=== PATIENT | male | born 1970 | race Caucasian/White ===

== ENCOUNTER 2021-08-29 21:06 | Inpatient (IN) | payer OTHER ==
[~2021-08-29] VITALS: Ht 175.3 cm; Wt 97.7 kg
[2021-08-29 21:39] VITALS: BP 137/97
[2021-08-29] MEDS ORDERED: ONDANSETRON PF 4 MG/2 ML VIAL. IVP PRN (22:15)
[2021-08-29] MEDS ORDERED: MORPHINE SULFATE 2 MG/ML INJ. IVP PRN (22:15)
[2021-08-29] MEDS: PANTOPRAZOLE IV PUSH 40 MG VIAL. IVP SCH (22:27)
[2021-08-29] MEDS: IV NORMAL SALINE 1000ML BAG 1,000 ML IV SCH (22:28)
[2021-08-30 02:41] VITALS: BP_SYST 116; BP_SYST 137; BP_DIAS 77; BP_DIAS 97
[2021-08-30 07:00] VITALS: BP 110/70
[2021-08-30] MEDS: IV NORMAL SALINE 1000ML BAG 1,000 ML IV SCH (08:09)
[2021-08-30] MEDS: PANTOPRAZOLE IV PUSH 40 MG VIAL. IVP SCH (08:10)
--- NOTE | 2021-08-30 08:11 | PDOC1 ---
History and Physical Date of Admission Date of Admission DATE: 08/30/21 TIME: 08:04 Identification/Chief Complaint Chief Complaint Impacted food bolus Source Source: Patient History of Present Illness History of Present Illness Patient is a 51-year-old male who presents as a transfer from [facility] for impacted food bolus since last night. He was eating a Chinese dish of pork wrapped in lettuce last night, when he felt food stuck in his throat. He vomited once without improvement. He had a history of similar symptoms several years ago treated with esophagus dilated. Patient unable to disimpact food bolus in [facility] ER, so he was sent as a transfer with GI consult. Upon my evaluation this morning he still having some emesis with small food particles. Still feels symptoms of food stuck in his throat. Past Medical History Pulmonary: Asthma Past Surgical History Past Surgical History Esophageal dilation Family History Family History: Adopted, Other Social History Smoke: No ALCOHOL: occassional Drugs: None Current Medications Current Medications Current Medications Ondansetron HCl (Zofran) 4 mg PRN Q6HRS PRN IVP NAUSEA/VOMITING 1ST CHOICE Last administered on 08/29/21at 22:28; Start 08/29/21 at 22:15 Morphine Sulfate (Morphine Sulfate) 2 mg PRN Q2HR PRN IVP SEVERE PAIN 7-10; Start 08/29/21 at 22:15 Pantoprazole Sodium (PROTONIX VIAL for IV PUSH) 40 mg DAILYAC IVP Last admini stered on 08/29/21at 22:27; Start 08/29/21 at 22:30 Sodium Chloride 1,000 ml @ 100 mls/hr Q10H IV Last administered on 08/29/21at 22:28; Start 08/29/21 at 22:30 Allergies Allergies: Coded Allergies: No Known Drug Allergies (Unverified , 08/29/21) ROS Review of System GENERAL: No history of weight change, weakness or fevers. SKIN: No bruising, hair changes or rashes. EYES: No blurred, double or loss of vision. NOSE AND THROAT: No history of nosebleeds, hoarseness or sore throat. HEART: Denies chest pain, denies palpitations. LUNGS: Denies cough, hemoptysis, wheezing or shortness of breath. GASTROINTESTINAL: Symptoms of impacted food bolus, nausea, vomiting. Denies abdominal pain. GENITOURINARY: Denies dysuria, frequency, urgency, hematuria. NEUROLOGIC: Denies history of numbness, tingling, tremor or weakness. PSYCHIATRIC: Denies anxiety, denies depression. ENDOCRINE: No history of heat or cold intolerance, polyuria or polydipsia. EXTREMITIES: Denies muscle weakness, joint pain, pain on walking or stiffness. Physical Exam Physical Exam General: Alert, Oriented X3, Cooperative, No acute distress HEENT: PERRLA, EOMI Lungs: Clear to auscultation, Normal air movement Heart: RRR, no murmurs Cardiovascular: S1, S2 Abdomen: Normal bowel sounds, Soft, No tenderness Extremities: No clubbing, No cyanosis Skin: No rashes, No significant lesion Neuro: Normal speech, Normal tone, Sensation intact Psych/Mental Status: Mental status NL, Mood NL Vitals Vitals Vital Signs Date Time Temp Pulse Resp B/P (MAP) Pulse Ox O2 Delivery O2 Flow Rate FiO2 08/30/21 07:00 98.0 63 20 110/70 (83) 96 Room Air 98.0 Labs Labs Laboratory Tests Test 08/29/21 22:55 SARS-CoV-2 Antigen (Rapid) Negative (NEGATIVE) Laboratory Tests Test 08/29/21 22:55 SARS-CoV-2 Antigen (Rapid) Negative (NEGATIVE) VTE Prophylaxis Ordered VTE Prophylaxis Devices: Yes VTE Pharmacological Prophylaxi: No Assessment/Plan Assessment/Plan Impacted food bolus Plan: Place consult to GI Zofran as needed Barring any GI plan or work-up, patient may be able to discharge home today Justifications for Admission Other Justification MARLY LOYA MD Aug 30, 2021 08:11
[2021-08-30 08:25] LABS: PROTHROMBIN TIME PATIENT 13.3 SEC (11.7-14.0)
--- NOTE | 2021-08-30 09:31 | PDOC2 ---
GI CONSULT Date of Service: DATE: 08/30/21 TIME: 09:31 Reason For Consult: food bolus HPI: HPI: 51 y/o male who reports a piece of beef lettuce wrap stuck in mid-lower chest since lunchtime yesterday. H/o intermittent dysphagia w/ solid foods - occurs 1-2 times monthly, passes with drinking coke. H/o food bolus twice - first in 2011 (hamburger) and most recently in 2017 (pulled pork). Had EGDs both times (most recent performed in [place], [place]), was told "scar tissue from acid reflux," believes esophageal dilation performed. This morning still not tolerating own secretions and uncomfortable w/ heartburn and hiccups. Does not have frequent reflux symptoms so untreated. No n/v, hematemesis, abd pain, diarrhea, constipation, hematochezia, melena, change in appetite, or weight loss. No previous colonoscopy. No GB, liver, pancreas, or PUD history. Eva present. H/o asthma, recently stopped Advair. PMH: PMH: asthma, pneumonia right wrist surgery FH: Family History: No pertinent hx (denies GI cancers - was adopted), Other ([place]) Social History: Smoke: No (remote as a teenager - "stupid stuff") ALCOHOL: other (2-3 drinks 4-5 times weekly) Drugs: None ROS: GEN: Denies fevers, chills, sweats HEENT: Denies blurred vision, sore throat CV: Denies chest pain RESP: Denies shortness of air, cough GI: Per HPI : Denies hematuria, dysuria ENDO: Denies weight changes NEURO: Denies confusion, dizziness MSK: Denies weakness, joint pain/swelling SKIN: Denies jaundice, pruritus Vitals: Vitals: Vital Signs Date Time Temp Pulse Resp B/P (MAP) Pulse Ox O2 Delivery O2 Flow Rate FiO2 08/30/21 07:00 98.0 63 20 110/70 (83) 96 Room Air 98.0 Labs: Labs: Laboratory Tests Test 08/29/21 22:55 08/30/21 07:45 SARS-CoV-2 Antigen (Rapid) Negative (NEGATIVE) Prothrombin Time 13.3 SEC (11.7-14.0) Prothromb Time International Ratio 1.0 (0.8-1.1) Allergies: Coded Allergies: No Known Drug Allergies (Unverified , 08/29/21) Medications: Current Medications Medications (Trade) Dose Ordered Sig/Ashlee Route PRN Reason Start Time Stop Time Status Last Admin Dose Admin Ondansetron HCl (Zofran) 4 mg PRN Q6HRS PRN IVP NAUSEA/VOMITING 1ST CHOICE 08/29/21 22:15 08/29/21 22:28 Pantoprazole Sodium (PROTONIX VIAL for IV PUSH) 40 mg DAILYAC IVP 08/29/21 22:30 08/30/21 08:10 Sodium Chloride 1,000 ml @ 100 mls/hr Q10H IV 08/29/21 22:30 08/30/21 08:09 PE: GEN: NAD - spitting into a cup HEENT: Atraumatic, PERRL LUNGS: CTAB HEART: RRR ABD: NABS, S/ND/NT EXTREMITY: No edema SKIN: No rashes, no jaundice NEURO/PSYCH: A & O 3 A/P: A/P: Food bolus - recurrent issue - this time beef lettuce wrap H/o dysphagia, GERD CRC screen - none Rapid COVID negative H/o asthma -- EGD for disimpaction this afternoon, other recs pending. Agree w/ PPI - discussed probably should continue this long-term considering recurrent issues. Also needs outpt screening colonoscopy. KUNAL FRANK Aug 30, 2021 09:31
--- NOTE | 2021-08-30 10:14 | NUR ---
SW following. Discussed with RN, pt from home with , room air, NPO, rapid COVID-19 negative. GI following - EGD today. RN advised no SW needs. SW will continue to follow.
[2021-08-30 11:12] VITALS: BP 111/79
[2021-08-30 13:03] VITALS: BP 132/98
[2021-08-30] MEDS ORDERED: PROPOFOL 10 MG/ML (20ML) VIAL. IV ONE (13:26)
[2021-08-30] MEDS ORDERED: LIDOCAINE 2% PF 5 ML VIAL. ONE (13:27)
[2021-08-30] MEDS ORDERED: SUCCINYLCHOLINE 200 MG/10 ML VIAL. ONE (13:30)
--- NOTE | 2021-08-30 14:32 | PDOC4 ---
PROCEDURE Procedure EGD/biopsies Indicaton: food bolus Meds: per anesthesia Findings: E--Numerous rings. Area in mid-esophagus c/w area of food impaction. Mild non- obstructing ring at GEJ. Suspicious for EOE. Biopsies from mid-esophagus. Food bolus had passed. G--Mild antral erythema, biopsied. No food in stomach. D--Normal to second portion. Lauren. well. IMP: Findings suspicious for EOE, biopsied taken. Antral erythema, non-specific. REC: Await biopsies. OK to go home. F/u with me in 2 weeks. Stick to soft foods. LEOLA MURILLO MD Aug 30, 2021 14:32
[2021-08-30 14:55] VITALS: BP 132/79
[2021-08-30] MEDS ORDERED: PANT40TA77 PO (15:18)
--- NOTE | 2021-08-30 15:25 | NUR ---
Discharge Note: LADONNA VALLADAR[place] [place] Discharge instructions and discharge home medications reviewed with Patient and a copy given. All questions have been answered and understanding verbalized. The following instructions and handouts were given: information about diet, activity, follow up appointments, medications. Discontinued lines and drains: IV line in right forearm removed, catheter tip intact. Patient discharged to home with self care with , patient ambulated to discharge vehicle.
[2021-08-30] MEDS ORDERED: PANTOPRAZOLE IV PUSH 40 MG VIAL. IVP SCH (16:30)
--- NOTE | 2021-08-31 16:07 | PATHOLOGY ---
[facility] Accession Number: [id number] . 01 Material submitted: . PART A: stomach - ANTRUM BIOPSY PART B: esophagus - MID ESOPHAGUS BIOPSY. Modifiers: mid . 01 Clinical history: . FOOD BOLUS . 02 Diagnosis: A. Gastric biopsies, antrum: - Chronic gastritis, mild. . B. Esophageal biopsies, middle esophagus: - Esophagitis with eosinophils. See comment. (JPM:peter; 08/31/2021) S 08/31/2021 1013 Local . 02 Comment: Sections of the gastric biopsy reveal segments of gastric antral/body transition mucosa showing congestion and mild chronic inflammation. A properly controlled immunoperoxidase stain for Helicobacter is negative for Helicobacter organisms. . Sections of the middle esophageal biopsy reveal segments of hyperplastic squamous esophageal mucosa. There are increased intraepithelial eosinophils. The differential diagnosis of esophagitis with eosinophils includes reflux esophagitis, "pill esophagitis", and eosinophilic esophagitis. There are foci showing greater than 30 intraepithelial eosinophils per high power field. This finding is supportive of the diagnosis of eosinophilic esophagitis. (JPM:peter;08/31/2021) . Special stain performed: Immunoperoxidase stain for Helicobacter on A1 . 02 Electronically signed: . Mauri Toledo MD, Pathologist NPI- [id number] . 01 Gross description: . A. The specimen is received in formalin, labeled "Koscooterker, Larry, antrum BX". Received are 2 segments of pale grant tissue measuring 0.3 and 0.5 cm in maximum dimension. The specimen is entirely submitted in cassette A1. . B. The specimen is received in formalin, labeled "Koelliker, Larry, mid esophagus BX". Received are 2 segments of pale grant tissue measuring 0.3 and 0.4 cm in maximum dimension. Specimen is entirely submitted in cassette B1. ([facility]; 08/30/2021) NRI/NRI 08/30/2021 1716 Local . 02 Pathologist provided ICD-10: K29.50, K20.0 . 02 CPT . 837213, 417406, [id number] Specimen Comment: A courtesy copy of this report has been sent to [phone], [phone] Specimen Comment: [id number] Specimen Comment: Report sent to / DR GAY Specimen Comment: A duplicate report has been generated due to demographic updates. Performed at: 01 [facility] [address] [facility] [address], [place] [id number] MD Reji Dong MD Phone: [phone] Performed at: 02 [facility] [address] [place], [place] [id number] MD Mauri Toledo MD Phone: [phone]
== END 2021-08-30 15:25 | disposition home or self-care (01) | DRG 156 ==
LOC: 4 NORTH 21:06
PROVIDERS: ADMIT Internal Medicine; ATTEND Internal Medicine
PROC: 0DB68ZX Excision of Stomach, Via Natural or Artificial Opening Endoscopic, Diagnostic (ICD-10-PCS; 2021-08-30)
PROC: 0DB58ZX Excision of Esophagus, Via Natural or Artificial Opening Endoscopic, Diagnostic (ICD-10-PCS; principal; 2021-08-30 14:00)
DX: T17.228A Food in pharynx causing other injury, initial encounter (principal); J45.909 Unspecified asthma, uncomplicated; K21.9 Gastro-esophageal reflux disease without esophagitis; Z20.822 Contact with and (suspected) exposure to COVID-19
CPT/HCPCS: 36415; 43239; 85610; 87426; C9113; J0330; J2405; J2704; J7030; U0003; G0378